=== PATIENT | male | born 1960 | race Caucasian/White ===

== ENCOUNTER → 2025-05-30 | Day surgery (SDC) | payer BC, OTHER ==
[2025-05-26 10:00] VITALS: BMI 28.8
[2025-05-30 09:56] VITALS: TEMP 97.7
[2025-05-30 10:49] VITALS: RESP 17
[2025-05-30 10:51] VITALS: BP 121/85; PULSE 74
== END | disposition home or self-care (01) ==
LOC: JASU-ENDO 08:25
PROVIDERS: ATTEND Internal Medicine Gastroenterology
PROC: 0DBL8ZX Excision of Transverse Colon, Via Natural or Artificial Opening Endoscopic, Diagnostic (ICD-10-PCS; 2025-05-30)
PROC: 0DBM8ZX Excision of Descending Colon, Via Natural or Artificial Opening Endoscopic, Diagnostic (ICD-10-PCS; principal; 2025-05-30 08:45)
DX: Z12.11 Encounter for screening for malignant neoplasm of colon (principal); D12.4 Benign neoplasm of descending colon; D12.3 Benign neoplasm of transverse colon; K64.8 Other hemorrhoids; K57.30 Diverticulosis of large intestine without perforation or abscess without bleeding; Z86.0100 Personal history of colon polyps, unspecified
CPT/HCPCS: 88305-TC